=== PATIENT | male | born 1965 | race American Indian/Alaskan Native ===

== ENCOUNTER 2016-10-27 15:25 | Emergency (ER) | payer MEDICAID, OTHER ==
[2016-10-27 15:43] VITALS: TEMP 98.1
--- NOTE | 2016-10-27 15:49 | EDPHY ---
H & P Time Seen by Provider: 10/27/16 15:43 HPI/ROS: Chief complaint. Body aches, kidney pain HPI. 51-year-old male presents with generalized body aches but especially to the back and the left flank. It began yesterday. No trauma or injury. No upper respiratory symptoms or fever. No cough, chest discomfort, trouble breathing. Denies problems with urination. No similar symptoms previously. Denies vomiting or diarrhea. No travel or known exposures to Infectious Disease. ROS Constitutional. no fever/chills, no weakness Eyes. no problems with vision ENT. no sore throat, no nasal drainage Cardiovascular. no chest pain Respiratory. no shortness of breath, no cough Abdominal. Left flank pain without nausea vomiting or diarrhea . no problems urinating MS. Myalgias and back pain Skin. no rash Lymph. no swollen glands Neuro. no headache, no dizziness, no difficulty walking or with speech Past Medical/Surgical History: Hep C, chronic pain, seizure disorder Social History: Single, daily smoker, no alcohol Smoking Status: Current every day smoker Physical Exam: General Appearance: Alert well-developed male moderate distress vital signs are stable Eyes: Pupils equal and round no pallor or injection. ENT, Mouth: Mucous membranes are moist. Respiratory: There are no retractions, lungs are clear to auscultation. Cardiovascular: Regular rate and rhythm. Gastrointestinal: Abdomen is soft no focal areas of tenderness. There appears to be left flank tenderness. Bowel sounds are normal. No masses Neurological: Awake and alert, sensory and motor exams grossly normal. Skin: Warm and dry, no rashes. Musculoskeletal: Neck is supple nontender. Extremities symmetrical, full range of motion. Psychiatric: Patient is oriented X 3. Patient is agitated Constitutional: Initial Vital Signs Temperature (C) 36.7 C 10/27/16 15:30 Heart Rate 83 10/27/16 15:30 Respiratory Rate 18 10/27/16 15:30 Blood Pressure 156/84 H 10/27/16 15:30 O2 Sat (%) 97 10/27/16 15:30 O2 Delivery Mode Room Air O2 (L/minute) 3 Allergies/Adverse Reactions: ketorolac [From Toradol] Allergy (Intermediate, Verified 10/27/16 15:39) Hives Home Medications: Medication Instructions Recorded buPROPion SR [Wellbutrin 100mg SR 100 mg PO BID 10/27/16 (*)] carBAMazepine ER [TEGretol XR] 400 mg PO 10/27/16 Medical Decision Making - Diagnostics Imaging Results: Imaging Impressions Abdomen CT 10/27/16 16:00 Impression: 1. Previous cholecystectomy. 2. No CT evidence of appendicitis, abscess or bowel obstruction. 3. Mild thickening of the gastric body and antrum. Rule out mild gastritis. 4. Mild hepatic steatosis. Findings discussed with Jeff Gillespie M.D. at 17:20 hour, 10/27/2016. Chest X-Ray 10/27/16 16:02 Impression: 1. No active cardiopulmonary disease seen. Procedures: IV normal saline with 1 L given. Morphine, Zofran, Ativan IV ED Course/Re-evaluation: Serial evaluations patient is stable. Patient is asking me for prescriptions for pain medication. He is hungry and he wants a sandwich in food. Patient and I discussed imaging lab results. We discussed treatment plan including criteria for return importance of follow-up and further evaluation. He expresses understanding and agreement Differential Diagnosis: I do not have an explanation for the patient's flank pain and general body aches. He actually seems well now. I've considered pyelonephritis, appendicitis, diverticulitis. I have considered drug-seeking behavior. - Data Points Laboratory Results: Laboratory Results 10/27/16 16:00 10/27/16 16:00 10/27/16 10/27/16 10/27/16 17:30 16:00 16:00 WBC 3.24 10^3/uL L 10^3/uL (3.80-9.50) RBC 3.82 10^6/uL L 10^6/uL (4.40-6.38) Hgb 12.5 g/dL L g/dL (13.7-17.5) Hct 35.8 % L % (40.0-51.0) MCV 93.7 fL fL (81.5-99.8) MCH 32.7 pg pg (27.9-34.1) MCHC 34.9 g/dL g/dL (32.4-36.7) RDW 14.9 % % (11.5-15.2) Plt Count 64 10^3/uL L 10^3/uL (150-400) MPV 10.3 fL fL (8.7-11.7) Neut % (Auto) 45.5 % % (39.3-74.2) Lymph % (Auto) 40.7 % % (15.0-45.0) [place] % (Auto) 12.0 % % (4.5-13.0) Eos % (Auto) 0.6 % % (0.6-7.6) Baso % (Auto) 0.9 % % (0.3-1.7) Nucleat RBC Rel Count 0.0 % % (0.0-0.2) Absolute Neuts (auto) 1.47 10^3/uL L 10^3/uL (1.70-6.50) Absolute Lymphs (auto) 1.32 10^3/uL 10^3/uL (1.00-3.00) Absolute Monos (auto) 0.39 10^3/uL 10^3/uL (0.30-0.80) Absolute Eos (auto) 0.02 10^3/uL L 10^3/uL (0.03-0.40) Absolute Basos (auto) 0.03 10^3/uL 10^3/uL (0.02-0.10) Absolute Nucleated RBC 0.00 10^3/uL 10^3/uL (0-0.01) Immature Gran % 0.3 % % (0.0-1.1) Immature Gran # 0.01 10^3/uL 10^3/uL (0.00-0.10) VBG Lactic Acid Sodium 141 mEq/L mEq/L (134-144) Potassium 3.7 mEq/L mEq/L (3.5-5.2) Chloride 108 mEq/L mEq/L (97-110) Carbon Dioxide 21 mEq/l L mEq/l (22-31) Anion Gap 12 mEq/L mEq/L (8-16) BUN 11 mg/dL mg/dL (7-23) Creatinine 0.6 mg/dL L mg/dL (0.7-1.3) Estimated GFR > 60 Glucose 114 mg/dL H mg/dL (70-100) Calcium 8.6 mg/dL mg/dL (8.5-10.4) Total Bilirubin 1.2 mg/dL mg/dL (0.1-1.4) Conjugated Bilirubin 1.0 mg/dL H mg/dL (0.0-0.5) Unconjugated Bilirubin 0.2 mg/dL mg/dL (0.0-1.1) AST 158 IU/L H IU/L (17-59) ALT 101 IU/L H IU/L (21-72) Alkaline Phosphatase 256 IU/L H IU/L (38-126) Troponin I 0.012 ng/mL ng/mL (0-0.034) Total Protein 7.5 g/dL g/dL (6.3-8.2) Albumin 3.4 g/dL L g/dL (3.5-5.0) Lipase 279.0 IU/L IU/L (23-300) Urine Color YELLOW Urine Appearance CLEAR Urine pH 6.0 (5.0-7.5) Ur Specific [place] 1.016 (1.002-1.030) Urine Protein NEGATIVE (NEGATIVE) Urine Ketones NEGATIVE (NEGATIVE) Urine Blood NEGATIVE (NEGATIVE) Urine Nitrate NEGATIVE (NEGATIVE) Urine Bilirubin NEGATIVE (NEGATIVE) Urine Urobilinogen NEGATIVE EU EU (0.2-1.0) Ur Leukocyte Esterase NEGATIVE (NEGATIVE) Urine Glucose NEGATIVE (NEGATIVE) Carbamazepine < 3.0 ug/mL L ug/mL (4.0-12.0) 10/27/16 16:00 WBC RBC Hgb Hct MCV MCH MCHC RDW Plt Count MPV Neut % (Auto) Lymph % (Auto) [place] % (Auto) Eos % (Auto) Baso % (Auto) Nucleat RBC Rel Count Absolute Neuts (auto) Absolute Lymphs (auto) Absolute Monos (auto) Absolute Eos (auto) Absolute Basos (auto) Absolute Nucleated RBC Immature Gran % Immature Gran # VBG Lactic Acid 1.3 mmol/L mmol/L (0.7-2.1) Sodium Potassium Chloride Carbon Dioxide Anion Gap BUN Creatinine Estimated GFR Glucose Calcium Total Bilirubin Conjugated Bilirubin Unconjugated Bilirubin AST ALT Alkaline Phosphatase Troponin I Total Protein Albumin Lipase Urine Color Urine Appearance Urine pH Ur Specific [place] Urine Protein Urine Ketones Urine Blood Urine Nitrate Urine Bilirubin Urine Urobilinogen Ur Leukocyte Esterase Urine Glucose Carbamazepine Medications Given: Discontinued Medications Sodium Chloride (Ns) 1,000 mls @ 0 mls/hr IV ONCE ONE PRN Reason: Wide Open Stop: 10/27/16 16:01 Last Admin: 10/27/16 16:10 Dose: 1,000 mls Lorazepam (Ativan Injection) 1 mg IVP EDNOW ONE Stop: 10/27/16 16:01 Last Admin: 10/27/16 16:15 Dose: 1 mg Morphine Sulfate (Morphine) 6 mg IVP EDNOW ONE Stop: 10/27/16 16:01 Last Admin: 10/27/16 16:12 Dose: 6 mg Ondansetron HCl (Zofran) 4 mg IVP EDNOW ONE Stop: 10/27/16 16:01 Last Admin: 10/27/16 16:12 Dose: 4 mg Departure - Departure Disposition: Home, Routine, Self-Care Clinical Impression: Abdominal pain Qualifiers: Abdominal location: generalized Qualified Code(s): R10.84 - Generalized abdominal pain Condition: Good Instructions: Flank Pain (ED) Additional Instructions: Ibuprofen 600 mg every 6 hours. Return for worsening symptoms including fever, vomiting. [facility]. Please call them in the morning to arrange and a follow-up appointment. Referrals: NONE *PRIMARY CARE P,. [Primary Care Provider] - As per Instructions [facility] [Outside] - 2-3 days, call for appt.
[2016-10-27] MEDS ORDERED: LORazepam 2 MG/ML INJ IVP ONE (16:00)
[2016-10-27] MEDS ORDERED: NS 1,000 ML IV ONE (16:00)
[2016-10-27] MEDS ORDERED: ONDANSETRON 4 MG/2 ML VIAL IVP ONE (16:00)
[2016-10-27 16:08] LABS: % IMMATURE GRANULYOCYTES 0.3 % (0.0-1.1); ABSOLUTE IMMATURE GRANULOCYTES 0.01 10^3/uL (0.00-0.10); ADD DIFF? NO; ADD MORPH? NO; ADD SCAN? NO; ATYPICAL LYMPHOCYTE FLAG 30 (0-99); FRAGMENT RBC FLAG 0 (0-99); HEMATOCRIT 35.8 % (40.0-51.0); HEMOGLOBIN 12.5 g/dL (13.7-17.5); LEFT SHIFT FLG 0 (0-99); LIPEMIA HEMOLYSIS FLAG 90 (0-99); MEAN CELL HEMOGLOBIN 32.7 pg (27.9-34.1); MEAN CELL HEMOGLOBIN CONCENTR. 34.9 g/dL (32.4-36.7); MEAN CELL VOLUME 93.7 fL (81.5-99.8); MEAN PLATELET VOLUME 10.3 fL (8.7-11.7); PLATELET CLUMPS FLAG 0 (0-99); PLATELET COUNT 64 10^3/uL (150-400); RED BLOOD CELL COUNT 3.82 10^6/uL (4.40-6.38); RED CELL DISTRIBUTION WIDTH 14.9 % (11.5-15.2)
[2016-10-27 16:27] LABS: ALANINE AMINOTRANSFERASE 101 IU/L (21-72); ALBUMIN 3.4 g/dL (3.5-5.0); ALKALINE PHOSPHATASE 256 IU/L (38-126); ANION GAP 12 mEq/L (8-16); ASPARTATE AMINOTRANSFERASE 158 IU/L (17-59); BILIRUBIN,TOTAL 1.2 mg/dL (0.1-1.4); BILIRUBIN-UNCONJUGATED 0.2 mg/dL (0.0-1.1); CALCIUM 8.6 mg/dL (8.5-10.4); CARBON DIOXIDE 21 mEq/l (22-31); CHLORIDE 108 mEq/L (97-110); CREATININE 0.6 mg/dL (0.7-1.3); GLOMERULAR FILTRATION RATE > 60; GLUCOSE 114 mg/dL (70-100); POTASSIUM 3.7 mEq/L (3.5-5.2); SODIUM 141 mEq/L (134-144); TOTAL PROTEIN 7.5 g/dL (6.3-8.2)
[2016-10-27 16:36] LABS: TROPONIN I 0.012 ng/mL (0-0.034)
[2016-10-27] MEDS ORDERED: IOPAMIDOL (ISOVUE-300) 100 ML BTL IV ONE (16:45)
[2016-10-27 16:55] LABS: TEGRETOL (CARBAMAZEPINE) < 3.0 ug/mL (4.0-12.0)
[2016-10-27 17:57] LABS: COLOR YELLOW; LEUKOCYTE ESTERASE,URINE NEGATIVE (NEGATIVE); NITRITE,URINE NEGATIVE (NEGATIVE)
[2016-10-27 19:05] VITALS: BP 137/92; PULSE 91; RESP 18; O2SAT 98
== END 2016-10-27 19:05 | disposition home or self-care (01) ==
DX: R10.84 Generalized abdominal pain (principal); F17.200 Nicotine dependence, unspecified, uncomplicated
CPT/HCPCS: 96374; J2060; J2405; Q9967